=== PATIENT | female | born 1955 | race Caucasian/White ===

== ENCOUNTER 2023-12-29 01:00 | Emergency (ER) | payer MEDICARE, OTHER ==
[~2023-12-29] VITALS: Ht 170.2 cm; Wt 84.8 kg
[2023-12-29 02:19] VITALS: BP 142/107
[2023-12-29] MEDS ORDERED: Diphth,Pertuss(Acell),Tet Vac 0.5 ML VIAL IM ONE (02:25)
[2023-12-29] MEDS ORDERED: Trimethoprim/Sulfamethoxazole DS Tab PO ONE (02:30)
[2023-12-29] MEDS ORDERED: Bactrim Ds Tab1 EACH PO (02:46)
== END 2023-12-29 03:18 | disposition home or self-care (01) ==
LOC: ER 01:00
DX: S81.811A Laceration without foreign body, right lower leg, initial encounter (principal); W45.8XXA Other foreign body or object entering through skin, initial encounter; Y93.01 Activity, walking, marching and hiking; Z23 Encounter for immunization; Z88.1 Allergy status to other antibiotic agents
CPT/HCPCS: 12004; 90471; 90715; 99282-25; A9270